=== PATIENT | female | born 1955 | race Caucasian/White ===

== ENCOUNTER 2017-09-12 23:10 | Emergency (ER) | payer OTHER ==
--- NOTE | 2017-09-12 23:39 | PDOC ---
History of Present Illness - General Stated Complaint: LEFT TOE INJURY Time Seen by Provider: 09/12/17 23:21 History Source: Patient Exam Limitations: No Limitations - History of Present Illness Initial Comments: 09/12/17 23:35 Best Contact: PCP:Dr. Molina Pmhx:asthma Pshx:left knee arthroscopy/mid ureteral sling Allergies: Ciprofloxacin/sulfa: Rash FH:n/a Social Hx: Cigarettes/ 0 Alcohol/ 0 Drugs/0 LMP:N/a 61-year-old female presents to the emergency department complaining of pain to the left fifth toe. Patient states she accidentally jammed it against a wall about 2 hours prior to her arrival to the ER. Patient denies extremity numbness or tingling sensation. Patient denies any other complaints. Pain is described as 4/10 throbbing nonradiating constant discomfort which is exacerbated on touch and there is no alleviating factors. PROCEDURE NOTE Left fifth toe 2 x 2 gauze placed between left fifth and fourth toe [place] tape left 5th toe 1% lidocaine 1.5cc digital block reduction via traction Past History - Past Medical History Allergies/Adverse Reactions: Allergies Allergy/AdvReac Type Severity Reaction Status Date / Time ciprofloxacin [From Cipro] Allergy Verified 09/13/17 00:25 ciprofloxacin HCl Allergy Verified 09/13/17 00:25 [From Cipro] gluten Allergy Verified 09/13/17 00:25 Sulfa (Sulfonamide Allergy Verified 09/13/17 00:25 Antibiotics) Home Medications: Ambulatory Orders Ibuprofen [Motrin -] 600 mg PO TID PRN 05/05/15 Ibuprofen [Motrin] 800 mg PO TID #30 tablet 05/05/15 Meloxicam [Mobic] 7.5 mg PO PRN PRN 05/05/15 Methocarbamol [Robaxin -] 500 mg PO TID #30 tablet 05/05/15 - Suicide/Smoking/Psychosocial Hx Smoking History: Never smoked Have you smoked in the past 12 months: No Hx Alcohol Use: No Drug/Substance Use Hx: No Review of Systems - Review of Systems Able to Perform ROS?: Yes Comments:: 09/12/17 23:37 CONSTITUTIONAL: Absent: fever, chills, diaphoresis, generalized weakness, malaise, loss of appetite MUSCULOSKELETAL: +Left 5th toe pain Absent: myalgia, arthralgia, joint swelling SKIN: Absent: rash, itching, pallor Is the patient limited Japanese proficient: No *Physical Exam - Physical Exam Comments: 09/12/17 23:38 MUSCULOSKELETAL Normal range of motion at all joints. No bony deformities or tenderness. No CVA tenderness. EXTREMITIES: No cyanosis. No clubbing. No edema. No calf tenderness. SKIN: Warm and dry. Normal capillary refill. No rashes. No jaundice. Left fifth toe Positive swelling Decreased range of motion due to pain Refill less than 2 seconds 2 point sensation intact Left foot: 2+ pedal pulse ED Treatment Course - RADIOLOGY Radiology Studies Ordered: Category Date Time Status FOOT-LEFT [RAD] Stat Radiology 09/12/17 23:13 Ordered Radiograph Interpretation: 09/13/17 00:11 xray left foot; lat angulated prox 5th mtp fx post reduction: xray left 5th toe; reduction successful *DC/Admit/Observation/Transfer Diagnosis at time of Disposition: Toe fracture, left Qualifiers: Encounter type: initial encounter Toe: lesser toe Fracture type: closed Phalanx : proximal Fracture alignment: nondisplaced Qualified Code(s): S92.515A - Nondisplaced fracture of proximal phalanx of left lesser toe(s), initial encounter for closed fracture - Discharge Dispostion Disposition: HOME Condition at time of disposition: Stable Decision to Admit order: No - Referrals Referrals: Shanita Molina [Primary Care Provider] - Elodia Farmer MD [Staff Physician] - - Patient Instructions Printed Discharge Instructions: DI for Toe Fracture Additional Instructions: Ice; 20 mins on alternating with 20 mins off for 48 hours while awake. Rest Elevate Follow up with your orthopedic surgeon or the one listed on the discharge form. Return to the ER for severe/persistent/worsening symptoms, extremity numbness/ tingling sensation. - Post Discharge Activity
[2017-09-13 00:25] VITALS: BP 125/73; PULSE 83; TEMP 98.9; BMI 42.9
== END 2017-09-13 02:30 | disposition home or self-care (01) ==
LOC: JER 23:10
PROC: 0QSRXZZ Reposition Left Toe Phalanx, External Approach (ICD-10-PCS; principal; 2017-09-12)
DX: S92.515A Nondisplaced fracture of proximal phalanx of left lesser toe(s), initial encounter for closed fracture (principal); W22.01XA Walked into wall, initial encounter; Y93.89 Activity, other specified; Y92.89 Other specified places as the place of occurrence of the external cause; Y99.8 Other external cause status
CPT/HCPCS: 73630-TC-LT; 73660-TC-FY; 99281-25

== ENCOUNTER 2018-06-16 06:04 | Day surgery (SDC) | payer OTHER ==
[2018-06-15 09:38] VITALS: BMI 41.1
--- NOTE | 2018-06-16 06:49 | HP ---
History & Physical Update - History History: No Change (H&P from 06/10/18 reviewed and unchanged Consent signed and witnessed) - Physical Physical: No Change - Assessment Assessment: No Change - Plan Plan: No Change (H&P reviewed and unchanged from consent signed)
[2018-06-16] MEDS ORDERED: ONDANSETRON 4 MG/2 ML VIAL IVPUSH PRN (06:50)
[2018-06-16] MEDS ORDERED: oxyCODONE HCL 5 MG TABLET PO PRN (06:50)
[2018-06-16] MEDS ORDERED: IBUPROFEN 800 MG/8 ML IJ IVPB PRN (06:50)
[2018-06-16] MEDS ORDERED: IBUPROFEN 600 MG TABLET (FP) PO PRN (06:50)
[2018-06-16] MEDS ORDERED: ELECTROLYTE-148 SOLN 1,000 ML IV SCH (07:00)
[2018-06-16] MEDS ORDERED: MIDAZOLAM HCL 2 MG/2 ML SINGLE DOSE VIAL ONE (07:14)
[2018-06-16] MEDS ORDERED: PROPOFOL 20 ML ONE (07:14)
[2018-06-16] MEDS ORDERED: LIDOCAINE HCL/PF 2% SDV 5ML VIAL ONE (07:15)
[2018-06-16] MEDS ORDERED: SUCCINYLCHOLINE CHLORIDE 200 MG/10 ML VIAL ONE (07:18)
[2018-06-16] MEDS ORDERED: DESFLURANE GAS 240 ML BOTTLE IH ONE (07:22)
--- NOTE | 2018-06-16 07:30 | OP ---
Operative Note - Note: Operative Date: 06/16/18 Pre-Operative Diagnosis: 62 yo with Thick Endometrium, Polyp on Endometrial biopsy Operation: Hysteroscopy, Polypectomy, D&C Findings: 1. Polyp Left cornua 2. Overgrown endometrium 3. Fibroid like tissue on anterior surface Post-Operative Diagnosis: Same as Pre-op Surgeon: Lady Walton Anesthesiologist/RADIO/TV TECHNICIAN: Jose Roman Anesthesia: MAC Specimens Removed: 1. Polyp. 2. Fibroid. 3. Endometrium curettings Estimated Blood Loss (mls): 1 Drains & Tubes with Location: Fluid deficit - 0cc Drains, Volume Out (mls): 50 Fluid Volume Replaced (mls): 400 Operative Report Dictated: Yes
[2018-06-16] MEDS ORDERED: IBUPROFEN 800 MG/8 ML IJ IVPB ONE (09:16)
[2018-06-16] MEDS ORDERED: LACTATED RINGERS SOLUTION 1,000 ML IV SCH (09:30)
[2018-06-16 11:58] VITALS: TEMP 98.3
[2018-06-16 13:09] VITALS: BP 125/61; PULSE 82
--- NOTE | 2018-06-16 22:43 | OP ---
DATE OF OPERATION: 06/16/2018 PREOPERATIVE DIAGNOSES: A 62-year-old with thick endometrium, polyp on endometrial biopsy. OPERATION: Hysteroscopy, polypectomy, dilation and curettage. FINDINGS: 1. Polyp, approximately 3 cm, extending from the left cornua. 2. Overgrown endometrium. 3. Fibroid-like tissue on the anterior uterine surface. POSTOPERATIVE DIAGNOSES: A 62-year-old with thick endometrium, polyp on endometrial biopsy. SURGEON: Lady Walton MD ANESTHESIOLOGIST: EDIE Barber ANESTHESIA: MAC. SPECIMENS REMOVED: 1. Polyp. 2. Fibroid. 3. Endometrial curettings. DESCRIPTION OF THE OPERATIVE PROCEDURE: After ensuring informed consent, the patient was brought to the operating room, where she was placed in dorsal lithotomy position. Perineum and vagina were prepped and draped in sterile fashion. Symphion hysteroscope was assembled and primed and white-balanced. The Mcarthur retractors were placed into the vagina. Cervical anterior lip was articulated with single-toothed tenaculum. Cervix was found to be parous and easily dilated to accommodate a 6.3-mm hysteroscope, which was inserted without any difficulty or trauma. The above findings were visualized. The resectoscope was introduced through the operative channel and all structures were shaved off and collected into the specimen container. Subsequently, all instruments and sponges were removed from the cervix, uterus, and vagina. Excellent hemostasis was noted. ESTIMATED BLOOD LOSS: 1 mL URINE OUTPUT: 50 mL were drained from the patient's bladder at the beginning of the surgery. FLUID DEFICIT: 0 mL INTRAVENOUS FLUIDS: 400 mL Sponge and instrument count was correct x2. The patient was brought to the recovery room in stable condition. Aman [id number]
--- NOTE | 2018-06-17 17:20 | PATH ---
Surgical Pathology Report Patient Name: GODWIN HUNT [facility] Rec. #: [id number] /Age/Gender: 1955 (Age: 62) / F Account: [id number] Location: [facility] SURGICAL Taken: 06/16/2018 Received: 06/16/2018 Reported: 06/17/2018 Physicians: Lady Walton M.D. Specimen(s) Received ENDOMETRIAL CURETTINGS, POLYP, FIBROIDS Clinical History Endometrium thickened, endometrial polyp Final Diagnosis ENDOMETRIAL CURETTINGS, POLYP, FIBROIDS, HYSTEROSCOPIC FIBROID RESECTION, DILATION AND CURETTAGE: FRAGMENTS OF ENDOMETRIAL POLYP, BUNDLES OF SMOOTH MUSCLE CONSISTENT WITH SUBMUCOSAL LEIOMYOMA, PROLIFERATIVE ENDOMETRIUM, AND BENIGN ENDOCERVIX. Electronically Signed Amaris Goodwin M.D. Gross Description Received in formalin labeled "endometrial curetting/polyp/fibroids," is a 3.0 x 3.0 x 0.3 cm aggregate of logan soft tissue fragments. The formalin is filtered and the specimen is entirely submitted in one cassette. /06/16/2018 [facility]06/16/2018
== END 2018-06-16 13:09 | disposition home or self-care (01) ==
LOC: JASU-SURG 06:04
PROVIDERS: ATTEND Obstetrics & Gynecology
PROC: 0UJD8ZZ Inspection of Uterus and Cervix, Via Natural or Artificial Opening Endoscopic (ICD-10-PCS; 2018-06-16)
PROC: 0UB97ZX Excision of Uterus, Via Natural or Artificial Opening, Diagnostic (ICD-10-PCS; principal; 2018-06-16 07:30)
PROC: 0UDB7ZX Extraction of Endometrium, Via Natural or Artificial Opening, Diagnostic (ICD-10-PCS; 2018-06-16 07:30)
DX: N84.0 Polyp of corpus uteri (principal)
CPT/HCPCS: 88305-TC; 94760